=== PATIENT | female | born 1965 | race Two or more races ===

== ENCOUNTER 2017-06-24 10:28 | Emergency (ER) | payer BC ==
[2017-06-24 10:59] VITALS: BP 140/72; PULSE 100; RESP 18; TEMP 99.3
--- NOTE | 2017-06-24 11:46 | ED ---
General Adult HPI - General Chief complaint: Extremity Injury, Upper Stated complaint: RT SHOULDER PAIN Time Seen by Provider: 06/24/17 11:12 Source: patient, RN notes reviewed Mode of arrival: ambulatory Limitations: no limitations - History of Present Illness Initial comments: Patient is a 51-year-old female who presents emergency room today with chief complaint of increased pain to the right shoulder. She admits that she's been having some symptoms on and off for the last 4 months. She states that today when she was pulling some close she felt increased pop to the right shoulder. She states is worse with extension and abduction. Patient denies any other complaints or injuries. Patient denies any recent fever, chills, shortness of breath, chest pain, back pain, abdominal pain, nausea or vomiting, numbness or tingling, dysuria or hematuria, constipation or diarrhea, headaches or visual changes, or any other complaints. - Related Data Home Medications Medication Instructions Recorded Confirmed Acetaminophen Tab [Tylenol Tab] 650 mg PO Q6H PRN 06/24/17 06/24/17 Celecoxib [CeleBREX] 200 mg PO DAILY PRN 06/24/17 06/24/17 Previous Rx's Medication Instructions Recorded traMADol HCl [Ultram] 50 mg PO Q6H PRN #20 tab 06/24/17 Allergies Allergy/AdvReac Type Severity Reaction Status Date / Time No Known Allergies Allergy Verified 06/24/17 11:26 Review of Systems ROS Statement: Those systems with pertinent positive or pertinent negative responses have been documented in the HPI. ROS Other: All systems not noted in ROS Statement are negative. Past Medical History Additional Past Medical History / Comment(s): ovarian cyst History of Any Multi-Drug Resistant Organisms: None Reported Past Surgical History: Hernia Repair, Hysterectomy Past Psychological History: Anxiety, Depression Smoking Status: Never smoker Past Alcohol Use History: Occasional Past Drug Use History: None Reported General Exam - General Exam Comments Initial Comments: General: The patient is awake and alert, in no distress, and does not appear acutely ill. Neck: The neck is supple, there is no tenderness or JVD. Cardiovascular: There is a regular rate and rhythm. No murmur, rub or gallop is appreciated. Respiratory: Lungs are clear to auscultation, respirations are non-labored, breath sounds are equal. No wheezes, stridor, rales, or rhonchi. Musculoskeletal: Patient does have normal appearance the right shoulder no obvious deformity. She does show good range of motion but does have pain with abduction of the right shoulder. Locally tender over the anterior aspect her strength is 5/5 in all areas. Sensations intact pulses equal bilaterally 2+. Neurological: A&O x 3. CN II-XII intact, There are no obvious motor or sensory deficits. Coordination appears grossly intact. Speech is normal. Skin: Skin is warm and dry and no rashes or lesions are noted. Psychiatric: Normal mood and affect. Limitations: no limitations Course Vital Signs 06/24/17 10:55 Temperature 99.3 F Pulse Rate 100 Respiratory 18 Rate Blood Pressure 140/72 O2 Sat by Pulse 97 Oximetry Medical Decision Making - Medical Decision Making Patient's x-ray reviewed and negative for any acute fracture dislocation. Patient given arm sling here for comfort advised to do range of motion of exercises. Patient is advised follow-up with orthopedics over the next 2 days. Advised anti-inflammatories for pain. Disposition Clinical Impression: Right shoulder pain Disposition: HOME SELF-CARE Condition: Good Instructions: Shoulder Pain (ED) Additional Instructions: Please follow-up with orthopedics over the next 2 days. Please use arm sling when up and moving around. Please do range of motion exercises as discussed. Please return to emergency room symptoms increase worsen or for any other concerns. Prescriptions: traMADol HCl [Ultram] 50 mg PO Q6H PRN #20 tab PRN Reason: Pain Referrals: Mireille Palm MD [Primary Care Provider] - 1-2 days Jag Perez MD [Medical Doctor] - 1-2 days Time of Disposition: 12:17
--- NOTE | 2017-06-24 11:47 | XR ---
EXAMINATION TYPE: XR shoulder complete RT DATE OF EXAM: 06/24/2017 CLINICAL HISTORY: Right shoulder pain. TECHNIQUE: Three views of the right shoulder are obtained. COMPARISON: None. FINDINGS: There is no acute fracture/dislocation evident in the right shoulder. The acromioclavicul ar and glenohumeral joint spaces appear within normal limits. The visualized ribs are intact and unr emarkable. IMPRESSION: There is no acute fracture or dislocation in the right shoulder. Unremarkable study.
== END 2017-06-24 12:22 | disposition home or self-care (01) ==
LOC: EC 10:28
DX: M25.511 Pain in right shoulder (principal)
CPT/HCPCS: 99283

== ENCOUNTER → 2018-07-11 | Outpatient (CLI) | payer BC ==
[2018-07-11 12:29] VITALS: BP 137/73; PULSE 89; BMI 23.0
--- NOTE | 2018-07-11 13:21 | P.GSHP ---
History of Present Illness H&P Date: 07/11/18 The patient is a 53-year-old white female who states that approximately 2 months ago she noted a palpable abnormality in the right breast retroareolar area. She subsequently had a mammogram performed on [id number] [id number]. This was bilateral and revealed some vague nodularity in the inferior half of the left breast which became less defined and the true lateral. Additionally a subareolar mass corresponding to the palpable changes noted on the right. She subsequently underwent a bilateral ultrasound which revealed a 2.2 cm lobular solid lesion at 1:00 in the right breast and no lesion of concern in the left breast. Surgical consultation ultrasound core biopsy of the right breast lesion was recommended. The patient has no history of trauma to the breast. She has no history of infection of the breast. No history of any nipple discharge or skin changes. She states that the area in the right breast is tender if it is bumped and it has increased slightly in size. Family history: 1.mother: ovarian cancer 2. maternal grandmother: ovarian cancer Hormonal History: menarche: 17 : 2 first at 28, breast fed: yes menopause: hysterectomy at 30's, took left ovary done for cyst BCP: several years hormones: none Past Surgical History: 1. ovarian cyst 2. umbilical hernia 3. 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, sponge kidney Genitourinary: Reports hematuria, Denies dysuria - Menstruation Menstruation: Reports post hysterectomy - Musculoskeletal Comment: arthritis Musculoskeletal: Reports myalgias - Integumentary Integumentary: Denies pruritus, Denies rash - Neurological Comment: herniated disc, hands go numb at times Neurological: Denies numbness, Denies weakness - Psychiatric Psychiatric: Reports anxiety, Reports depression - Endocrine Endocrine: Reports fatigue, Denies weight change - Hematologic/Lymphatic Comment: uses aspirin product twice a week - Allergic/Immunologic Allergic/Immunologic: Reports seasonal allergies Past Medical History Additional Past Medical History / Comment(s): left ovarian cyst History of Any Multi-Drug Resistant Organisms: None Reported Past Surgical History: Hernia Repair, Hysterectomy Additional Past Surgical History / Comment(s): umbilical hernia Past Anesthesia/Blood Transfusion Reactions: Previous Problems w/ Anesthesia Additional Past Anesthesia/Blood Transfusion Reaction / Comment(s): No blood transfusion to date. Patient states that it "is a little harder for me to come out of it" Past Psychological History: Anxiety, Depression Smoking Status: Never smoker Past Alcohol Use History: Occasional Past Drug Use History: None Reported - Past Family History Father Family Medical History: Coronary Artery Disease (CAD), Diabetes Mellitus, Myocardial Infarction (DC) Additional Family Medical History / Comment(s): at age 72 Mother Additional Family Medical History / Comment(s): back surgery Sister(s) Family Medical History: CVA/TIA, Diabetes Mellitus Additional Family Medical History / Comment(s): PE following dental surgery that led to CVA Medications and Allergies Home Medications Medication Instructions Recorded Confirmed Type No Known Home Medications 06/25/18 07/11/18 History Allergies Allergy/AdvReac Type Severity Reaction Status Date / Time No Known Allergies Allergy Verified 06/25/18 11:18 Surgical - Exam Vital Signs Pulse BP Pulse Ox 89 137/73 100 07/11/18 12:24 07/11/18 12:24 07/11/18 12:24 - General well developed, well nourished, no distress - Eyes normal ocular movement - ENT no hearing loss, no congestion - Neck no masses, trachea midline - Respiratory normal respiratory effort, clear to auscultation - Cardiovascular Rhythm: regular Heart Sounds: normal: S1, S2 - Abdomen Abdomen: soft, non tender, no guarding, no rigid, no rebound - Neurologic no disoriented, no combative - Musculoskeletal normal gait, normal posture - Psychiatric oriented to time, oriented to person, oriented to place, speech is normal, memory intact Breast examination: Right breast: In the inner periareolar area there is approximately a 2 cm firm area of nodularity, multiple positional exam otherwise fibrocystic changes no dominant masses or nodules of concern Right axilla: No adenopathy of concern Left breast: No dominant masses or nodules of concern on multiple positional exam fibrocystic changes Left axilla: No adenopathy of concern Results Radiographic reports reviewed Assessment and Plan Assessment: Impression: 1. Abnormal mammogram right breast 2. Palpable abnormality right breast 3. Abnormal ultrasound right breast no abnormal findings on ultrasound left breast 4. Musculoskeletal pain 5. Degenerative disc disease 6. Status post hysterectomy 1 ovary Plan: 1. Ultrasound-guided core biopsy right breast lesion 2. Medical management of medical problems 3. Further recommendation following pathology results of right breast lesion 4. follow/up two weeks CC: Dr. Palm
== END | disposition home or self-care (01) ==
LOC: WWCWWP 11:38
PROVIDERS: ATTEND Surgery
DX: Z53.9 Procedure and treatment not carried out, unspecified reason (principal)

== ENCOUNTER → 2018-07-16 | Day surgery (SDC) | payer BC ==
[2018-07-16 11:37] VITALS: RESP 12; TEMP 98.1
[2018-07-16 13:16] VITALS: BP 117/77; PULSE 77
--- NOTE | 2018-07-16 15:47 | USB ---
EXAMINATION TYPE: US breast needle core RT DATE OF EXAM: 07/16/2018 HISTORY: Right breast mass. FINDINGS: Maximal barrier technique was utilized. The skin overlying a suitable path to the patient's mass was localized with ultrasound and the overlying skin prepped and draped. Ultrasound was utilized with sterile technique. Lidocaine was used for local anesthesia. A skin adelaida was made with a scalpel. An 18-gauge needle was advanced under direct ultrasound guidance and core specimen obtained of the mass. 2 additional passes were made and core specimens obtained. Marker clip was then deployed. Specimen submitted to Pathology. Following the procedure, hemostasis achieved and the patient is discharged in stable condition without complication. IMPRESSION:STATUS POST ULTRASOUND GUIDED CORE BIOPSY OF right breast MASS, PATHOLOGY IS PENDING. THIS PROCEDURE IS PERFORMED BY THE UNDERSIGNED. Pathology Results: Malignant BREAST, RIGHT, ULTRASOUND GUIDED CORE BIOPSY: Invasive moderately differentiated ductal carcinoma (Grade 2). See Surgical Pathology Cancer Case Summary. Recommendation Surgical consult of the right breast. SANDRA
== END | disposition home or self-care (01) ==
LOC: RADUSWWP 11:19
PROVIDERS: ATTEND Surgery
DX: C50.911 Malignant neoplasm of unspecified site of right female breast (principal)
CPT/HCPCS: 88305; 19083; A4648; J2001

== ENCOUNTER → 2018-07-26 | Outpatient (CLI) | payer BC ==
[2018-07-26 12:27] VITALS: BP 161/74; PULSE 89; RESP 16; TEMP 97.3; BMI 24.7
--- NOTE | 2018-07-26 12:47 | P.PN ---
Subjective Progress Note Date: 07/26/18 The patient is a 53-year-old white female who presents for results of an ultrasound-guided core biopsy of the right breast. Pathology revealed a grade 2 proximally 2.2 cm invasive ductal carcinoma which was ER/MA positive and HER- 2 negative. The patient on physical examination previously did not have any adenopathy in the right axilla. I've had a long discussion with the patient and her regarding treatment options. Unfortunately secondary to the location directly under the nipple areolar complex with almost direct extension and physical examination into the area of the nipple is not felt to be a good candidate for lumpectomy. We have discussed lumpectomy which would cause discrepancy in size of the breast with removal of the nipple areolar complex, we have also discussed possible skin sparing mastectomy with immediate reconstruction and the patient wishes this to be performed. If if the patient were to receive neoadjuvant chemotherapy and have some shrinkage of the tumor secondary to the proximity to the nipple areolar complex I still felt that this would not be a good option to try to save the nipple areolar complex. Additionally we have discussed sentinel node biopsy and possible axillary node dissection. The patient and her understand the risks and benefits of this and after discussion of all treatment options they wish to proceed with a mastectomy, immediate breast reconstruction, sentinel node biopsy and possible axillary node dissection. Objective - Vital Signs Vital signs: Vital Signs Temp 97.3 F L 07/26/18 12:24 Pulse 89 07/26/18 12:24 Resp 16 07/26/18 12:24 BP 161/74 07/26/18 12:24 Pulse Ox 99 07/26/18 12:24 Intake & Output 07/25/18 07/26/18 07/26/18 18:59 06:59 18:59 Weight 63.503 kg - Constitutional General appearance: Present: average body habitus, cooperative, mild distress - EENT Eyes: Present: EOMI - Neck Neck: Present: normal ROM - Respiratory Respiratory: bilateral: CTA - Cardiovascular Rhythm: regular Heart sounds: normal: S1, S2 - Gastrointestinal General gastrointestinal: Present: normal bowel sounds, soft - Integumentary Integumentary Comment(s): Mild ecchymosis in proximity to where core biopsy was done in the right breast Right breast examination performed prior to the biopsy revealed a palpable abnormality posterior to the right nipple areolar complex with extension very close under the nipple areolar complex Right axilla: No adenopathy of concern Left breast: On prior exam no dominant mass or nodule is of concern Left axilla: No adenopathy of concern - Psychiatric Psychiatric: Present: A&O x's 3, appropriate affect Assessment and Plan Assessment: Impression: 1. Right breast invasive ductal carcinoma grade 2 approximately 2.2 cm in size 2. Clinical [id number] ER positive, MA positive, HER-2/miky negative right breast cancer Plan: 1. Appointment with plastic surgery 2. Probable skin sparing mastectomy sentinel node biopsy possible axillary node dissection to be scheduled in the near future CC: Dr. Palm
== END | disposition home or self-care (01) ==
LOC: WWCWWP 11:47
PROVIDERS: ATTEND Surgery
DX: Z53.9 Procedure and treatment not carried out, unspecified reason (principal)

== ENCOUNTER → 2018-08-15 | Outpatient (CLI) | payer BC ==
[2018-08-15 12:41] VITALS: BP 134/64; PULSE 85; RESP 16; TEMP 97.3; BMI 23.0
--- NOTE | 2018-08-15 13:21 | P.GSHP ---
History of Present Illness H&P Date: 08/15/18 Chief Complaint: Right breast cancer/posterior to the nipple areolar complex The patient is a 53-year-old white female who was noted to have a palpable abnormality in her right breast in the retroareolar region. She subsequently had a mammogram performed on . This was bilateral and revealed some vague nodularity in the inferior half of the left breast which became less defined in the true lateral. Additionally a subareolar mass corresponding to the palpable changes were noted on the right. She subsequently underwent a bilateral ultrasound which revealed a 2.2 cm lobular solid lesion at 1:00 in the right breast no lesion of concern in the left breast. She underwent a core biopsy of the area in the right breast which was consistent with a grade to 2.2 cm invasive ductal carcinoma. This was ER/PA positive and HER-2 negative. The patient secondary to the location was recommended to undergo a skin sparing mastectomy with immediate reconstruction. After consideration she and her significant other decided that she would like to have bilateral mastectomy performed. She saw the plastic surgeon Dr. Jarquin in consultation. I discussed with the patient and her significant other that I do not expect there to be any cancer in the left breast and despite this she wishes a mastectomy to be performed. Genetic testing has been preformed and results are pending. Family history: 1. Mother: Ovarian cancer 2. Maternal grandmother: Ovarian cancer Hormonal history: Menarche: 17 : To first a 28 press-fit: Yes Menopause: Hysterectomy at 31 took her left ovary was done for assist control pills: several years Hormones: None Past surgical history: 1. Ovarian cyst removed 2. Umbilical hernia 3. hysterctomy Medical history: none Social history: Smoke: Negative Alcohol: [place] several times a week Drugs: Negative - Constitutional Comment: BMI 23 Constitutional: Denies chills, Denies fever - EENT Eyes: denies blurred vision, denies pain Ears: deny: decreased hearing, tinnitus Ears, nose, mouth and throat: Reports headache, Denies sore throat - Breasts Breasts: bilateral: as per HPI - Cardiovascular Cardiovascular: Denies chest pain, Denies shortness of breath - Respiratory Respiratory: Denies cough, Denies 7 - Gastrointestinal Comment: discussed colonoscopy patient refuses at this time Gastrointestinal: Reports constipation, Denies abdominal pain, Denies diarrhea, Denies nausea, Denies vomiting - Genitourinary (Female) Genitourinary: Denies dysuria, Denies hematuria - Menstruation Menstruation: Reports post hysterectomy - Musculoskeletal Comment: arthritis Musculoskeletal: Reports myalgias - Integumentary Integumentary: Denies pruritus, Denies rash - Neurological Neurological: Denies numbness, Denies weakness - Psychiatric Psychiatric: Reports anxiety, Reports depression - Endocrine Endocrine: Denies fatigue, Denies weight change - Hematologic/Lymphatic Comment: none at this time - Allergic/Immunologic Allergic/Immunologic: Reports seasonal allergies Past Medical History Past Medical History: Cancer, Pneumonia, Skin Disorder Additional Past Medical History / Comment(s): migraines, umbilical hernia, eczema, "sponge kidney", hx ovarian cancer, breast cancer History of Any Multi-Drug Resistant Organisms: None Reported Past Surgical History: Breast Surgery, Hernia Repair, Hysterectomy Additional Past Surgical History / Comment(s): umbilical hernia, left oophorectomy, rt breast biopsy Past Anesthesia/Blood Transfusion Reactions: Previous Problems w/ Anesthesia Additional Past Anesthesia/Blood Transfusion Reaction / Comment(s): No blood transfusion to date. Patient states that it "is a little harder for me to come out of it" Past Psychological History: Anxiety, Depression Smoking Status: Never smoker Past Alcohol Use History: Occasional Past Drug Use History: None Reported - Past Family History Father Family Medical History: Cancer Additional Family Medical History / Comment(s): . Mother History Unknown: Yes Family Medical History: Cancer Additional Family Medical History / Comment(s): back surgery Sister(s) Family Medical History: CVA/TIA, Diabetes Mellitus Additional Family Medical History / Comment(s): "blood clot in brain" Medications and Allergies Home Medications Medication Instructions Recorded Confirmed Type No Known Home Medications 06/25/18 08/15/18 History Allergies Allergy/AdvReac Type Severity Reaction Status Date / Time No Known Allergies Allergy Verified 08/15/18 12:20 Surgical - Exam Vital Signs Temp Pulse Resp BP Pulse Ox 97.3 F L 85 16 134/64 98 08/15/18 12:21 08/15/18 12:21 08/15/18 12:21 08/15/18 12:21 08/15/18 12:21 BMI 23 - General well developed, well nourished, moderate distress - Eyes normal ocular movement - ENT no hearing loss, no congestion - Neck no masses, trachea midline - Respiratory normal respiratory effort, clear to auscultation - Cardiovascular Rhythm: regular Heart Sounds: normal: S1, S2 - Abdomen Abdomen: soft, non tender, no guarding, no rigid, no rebound - Integumentary tattoo no rash, no abnormal pigmentation - Musculoskeletal normal gait, normal posture - Psychiatric oriented to time, oriented to person, oriented to place, speech is normal, memory intact Breast examination: Right breast colon mass noted directly beneath the nipple areolar complex on the right approximately 2.5 cm in size Right axilla: No adenopathy of concern Left breast: No dominant masses or nodules of concern a multi-positional exam Left axilla: No adenopathy of concern Results Patient's radiographs and pathology reports reviewed Assessment and Plan Assessment: Impression: 1. Right breast cancer 2. Arthritis 3. Status post hysterectomy Plan: 1. Bi-lateral mastectomy/skin sparing with sentinel node biopsy on the right and bilateral immediate reconstruction 2. Medical management of medical problems 3. Surgery will include bilateral skin sparing mastectomy, right breast injection for sentinel node biopsy, sentinel node biopsy on the right with possible right axillary node dissection Have had a long discussion with the patient and her significant other regarding treatment options for her malignancy. After discussion she has opted for a bilateral mastectomy. She knows that in the contralateral breast we do not expect to find a cancer. She wishes this to be done for symmetry purposes this was decided after her meeting with the plastic surgeon. We are waiting results of BRCA1 testing. The patient understands that if the risks were to be positive this could increase her risk of ovarian cancer however at this time she wishes to have the breast disease taken care of. Even if the BRCA1 gene is negative she wishes to have bilateral mastectomy. Dr. Palm was informed of the patient's decision. Cc: Dr. Palm
== END ==
LOC: WWCWWP 12:14
PROVIDERS: ATTEND Surgery
DX: Z53.9 Procedure and treatment not carried out, unspecified reason (principal)

== ENCOUNTER 2018-08-20 06:48 | Observation (INO) | payer BC ==
[2018-08-12 10:14] VITALS: BMI 23.0
[~2018-08-20 06:48] MED LIST: DEXAMETHASONE SOD PHOSPHATE 10 MG/ML 1 ML VIAL IV ONE; HEPARIN SODIUM,PORCINE 5,000 UNIT/ML 1 ML VIAL SQ ONE; LIDOCAINE 1% 20 ML VIAL (10MG/ML) FOR IV START INTRADERMA PRN; MIDAZOLAM 2 MG/2 ML VIAL IV PRN; Pre Op ABX Message 1 EACH MISC MISCELLANE ONE; SCOPOLAMINE 1.5MG/72HR PATCH TRANSDERM ONE
[2018-08-20] MEDS ORDERED: ALPRAZolam 0.5 MG TAB PO ONE (07:19)
[2018-08-20] MEDS: LACTATED RINGERS 1,000 ML IV SCH (07:29)
[2018-08-20] MEDS ORDERED: ceFAZolin 2,000 MG in DEXTROSE/WATER 1 50ML.BAG IVPB STA (08:55)
[2018-08-20] MEDS: ONDANSETRON 4 MG/2 ML VIAL IVP ONE ×2 (08:55→13:15)
[2018-08-20] MEDS ORDERED: ceFAZolin IN SWFI 2 GM/20 ML SYRINGE IVP STA (08:57)
--- NOTE | 2018-08-20 09:06 | NM ---
EXAMINATION TYPE: NM sentinel node injection DATE OF EXAM: 08/20/2018 COMPARISON: 06/21/2018 breast ultrasound HISTORY: Right breast cancer TECHNIQUE AND FINDINGS: The procedure of sentinel lymph node injection was explained to the patient. The benefits, alternatives, and risks were discussed. An informed consent was then obtained. Overlying skin is cleaned with sterile alcohol. Following this, 542 uCi [id number] Tilmanocept was inject ed in the upper outer aspect of the right nipple intradermally. The patient tolerated the procedure well without any immediate complication. The patient was kept in the radiology department for short stay after the procedure and then taken to surgery for surgical p rocedure what is presumed intraoperative gamma probe will be used for sentinel lymph node detection. IMPRESSION: Right breast radiotracer injection for sentinel node localization as above.
[2018-08-20] MEDS ORDERED: ePHEDrine SULFATE/0.9% NACL/PF 50 MG/5 ML SYRINGE IV ONE (09:11)
[2018-08-20] MEDS ORDERED: SUCCINYLCHOLINE CHLORIDE 100 MG/5 ML SYR IV ONE (09:11)
[2018-08-20] MEDS ORDERED: MIDAZOLAM 2 MG/2 ML VIAL ONE (09:11)
[2018-08-20] MEDS ORDERED: PROPOFOL 10 MG/ML 20 ML VIAL IV ONE (09:11)
[2018-08-20] MEDS ORDERED: fentaNYL (PF) 50 MCG/ML 2 ML AMP ONE (09:11)
[2018-08-20] MEDS ORDERED: LIDOCAINE 1% INJ 10MG/ML (20 ML MDV) ONE (09:11)
[2018-08-20] MEDS ORDERED: HEPARIN SODIUM,PORCINE 5,000 UNIT/ML 1 ML VIAL SQ ONE (09:28)
--- NOTE | 2018-08-20 09:32 | P.PN ---
Progress Note - Text Progress Note Date: 08/20/18 Patient opted for bilateral mastectomy. She understands risks and benefits and understands this is not necessary from a medical stand point and wishes to proceed. She is concerned about survellience and symmetry and wishes to proceed.
[2018-08-20] MEDS ORDERED: LACTATED RINGERS 1,000 ML IV ONE ×2 (10:08→13:55)
--- NOTE | 2018-08-20 11:30 | P.OP ---
Date of Procedure: 08/20/18 Preoperative Diagnosis: Right breast invasive ductal carcinoma Postoperative Diagnosis: Same Procedure(s) Performed: Right sentinel node biopsy, right skin sparing mastectomy, left skin sparing mastectomy Anesthesia: JONNATHAN Surgeon: Amarilys Atkinson Estimated Blood Loss (ml): 20 IV fluids (ml): 700 Pathology: other ([place] node, axillary lymph nodes, bilateral breast) Condition: stable Disposition: PACU Indications for Procedure: Right breast invasive ductal carcinoma Operative Findings: Dense breast tissue Description of Procedure: Indications: The patient is a 53-year-old white female with a invasive ductal carcinoma located in the nipple area over area on the right breast. The patient had opted for a mastectomy on this side however after consideration she felt that she wanted bilateral mastectomy. She met with plastic surgery and this was her decision. She understands that she does not have a cancer or knowledge in the left breast and this is not necessary from a medical standpoint. However for symmetry purposes and surveillance post procedure she is very adamant about wanting a bilateral mastectomy. The patient was taken to the operating room and following induction of anesthesia the right and left breasts and right axilla were prepped and draped in a sterile fashion. Using the neoprobe the area of greatest radioactivity was identified in the right axilla. An incision was made over this area and carried into the axillary tissue. A radioactive lymph node was identified. This was removed. The 10 second count on the lymph node was over 12,000. The patient's was noted to have a second radioactive lymph node in the 10 second count on this was 1200. The background count was 34 at 10 seconds. The sentinel node #1 was sent for frozen section evaluation. This was negative for cancer on frozen section evaluation. After assured that hemostasis was attained the deep tissues were closed using 3-0 Vicryl suture. The skin was closed using a 4-0 Monocryl. The right breast was approached. A circumareolar incision was performed. This was carried through the skin and subcutaneous tissue. Circumferential skin flaps were developed down to the muscle of the chest wall. The breast was taken from medial to lateral being careful to maintain hemostasis using the electrocautery device as well as the Harmonic scalpel. After the breast was removed the wound was well irrigated. After we assured that hemostasis was attained the wound was packed and instruments and gloves were changed. The left breast was then approached. A matching circumareolar incision to the right side was performed. This was carried through the skin and subcutaneous tissue. Circumferential flaps were developed. Dissection was carried down to the pectoralis major muscle. The breast was removed from medial to lateral being careful to maintain hemostasis using the electrocautery device as well as the Harmonic scalpel. After this the breast was removed. Both breasts were oriented and superior and lateral margins were marked using suture. After assured that hemostasis was attained in the left side the wound was packed. At this point Dr. Jarquin plastic surgeon came in to complete the procedure. All instrument and sponge counts were correct at the end of the bilateral mastectomy and sentinel node biopsy. The patient tolerated the procedure in stable condition to this point.
[2018-08-20] MEDS ORDERED: HYDROmorphone 1 MG/ML 1 ML SYRINGE IV PRN (11:33)
[2018-08-20] MEDS ORDERED: NALOXONE 0.4 MG/ML 1 ML VIAL IV PRN (11:33)
--- NOTE | 2018-08-20 11:33 | P.NAPBC ---
[facility] Queries - [facility] Queries Was patient's case review presented at [facility] tumor board? If no, comment.: Yes Was patient's pathology reviewed at [facility]? If no, comment.: Yes Was breast conservation surgery offered? If no, comment.: No (The cancer was directly below/involving the aerola and nipple complex. ) Was sentinel node biopsy offered? If no, comment.: Yes Was diagnosis confirmed by percutaneous core biopsy? If no, comment.: Yes If mastectomy patient, was a preop referral to a reconstructive surgeon offered? : Yes [facility] Comments: The lesion in the right breast was directly below the nipple areolar complex. It was not felt that she would get a good cosmetic result from a lumpectomy. This was discussed with the patient, and for cosmetic reasons she opted for a skin sparing mastectomy with immediate reconstruction. After consultation with plastic surgery she decided that she wanted bilateral mastectomies performed. We discussed that this was not medically necessary however 4 symmetry purposes as well as postoperative surveillance she understood risks and benefits and wished to have bilateral mastectomy.
--- NOTE | 2018-08-20 13:08 | P.ONQ ---
Anesthesiology Proc Note - PNB - Peripheral Nerve Block Performed Bilateral Other (see comment) Single Time Out Performed: Yes (pec1 and pec2) Procedure Start Time: 08:36 Procedure Stop Time: 08:42 Indication: Acute Post-Operative Pain, Requested by physician Sedation Type: Sedate with meaningful contact maintained Preparation: Sterile Prep Needle Size: 50mm (2") Needle Gauge: 21 Technique: Ultrasound Injectate: 0.5% Ropivacaine (see comment for volume) (ropi .5% 10 ccfor each block) Blood Aspirated: No Pain Paresthesia on Injection Noted: No Resistance on Injection: Normal Events: Uneventful and Well Tolerated
[2018-08-20] MEDS: HYDROmorphone 1 MG/ML 1 ML SYRINGE IVP PRN ×4 (13:23→13:51)
--- NOTE | 2018-08-20 15:07 | OP ---
OPERATIVE REPORT DATE OF SURGERY: 08/20/2018. SURGEON: Wilfred Hart MD PREOPERATIVE DIAGNOSES: 1. Acquired loss right breast. 2. Acquired loss left breast. 3. Breast cancer. POSTOPERATIVE DIAGNOSES: 1. Acquired loss right breast. 2. Acquired loss left breast. 3. Breast cancer. OPERATIVE PROCEDURES: 1. Immediate reconstruction right breast following mastectomy with insertion of tissue building construction teacher subsequent outpatient expansion. 2. Immediate reconstruction left breast following mastectomy with insertion of tissue building construction teacher subsequent outpatient expansion. 3. Implantation of reconstructive graft for right and left breast reconstruction, 300 cm2. OPERATIVE INDICATIONS: The patient is a 53-year-old female with breast cancer of the right breast. She is to undergo bilateral mastectomies and is referred to my care for breast reconstruction. The patient has elected to proceed with tissue building construction teacher style reconstruction. Understands the staged nature of breast reconstructive surgery including potential risks and complications related to today's surgery such as seroma, hematoma, wound healing problems, postoperative infection, among others. She has requested I perform today's surgery. OPERATIVE PROCEDURE SUMMARY: The patient is seen in the preoperative area, markings made, procedure reviewed. All questions answered. She was transported to the operating room where she was placed in supine position. General endotracheal anesthesia was established Dr. Atkinson and her surgical team then proceeded with the right mastectomy, right sentinel lymph node excision, and then a left mastectomy. The patient sentinel lymph node was negative for cancer. Once the mastectomy procedures were complete, I entered the procedure. All sponge and needle counts from the prior procedure were correct. Both wounds were open with no active bleeding. Surgery was initiated on the left side. The pectorals major muscle was identified where it joined the chest wall laterally, loose areolar connective tissue divided with cautery allowing entry into the potential plane between the pectorals major and minor muscle with bluntly developed, medial attachment fibers of the pectorals muscle to ribs released with cautery. All inferior attachment of the pectorals major muscle was released with cautery to obtain sufficient muscle coverage required recruitment of additional muscle groups inferomedially, rectus abdominis muscle and fascia inferolaterally, external abdominal oblique muscle and fascia and laterally, serratus anterior muscle and fascia were all elevated through this approach using cauterization to maintain hemostasis with cautery as needed. Once sufficient size submuscular reconstructive pocket created, the area is packed open with saline moistened laparotomy sponges. Attention was turned towards the right side. The pectorals major muscle was identified and then the lateral aspect and muscle were joined with the chest wall. Loose areolar connective tissue divided with cautery here allowing entry into the potential plane between the pectorals major and minor muscles, which was bluntly developed. Medial attachment fibers of the pectorals major muscle was released with cautery and all inferior attachments, again sufficient muscle coverage required recruitment of additional muscle groups, inferior medial rectus abdominis muscle and fascia, inferior laterally external abdominal oblique muscle and fascia and laterally serratus anterior muscle and fascia were all elevated. The patient's muscle on the right side was attenuated significant amount and there were rents within the muscle tissue. The right left side were converted to inferior sling type reconstruction with a low transverse incision across the muscle flap that was elevated along the area of the thoracoabdominal wall fascial plane. SurgiMend reconstructive graft was then opened on the field, two pieces each measuring 10 x 15 cm, fenestrated and thin. They were soaked in room temperature saline. Once ready, they were placed into the right and left reconstructive cavities and secured to the inferior muscular cuff created using interrupted short running 3-0 Vicryl sutures. The cavities were sized. Good symmetry was present. Gloves changed and tissue building construction teacher opened on the field. The left side was opened first. Both expanders were model number [id number] measuring 375 mL. The left-sided serial number was [id number] and the right-sided serial number was [id number]. The left-sided device was placed first. After opening the device, it is irrigated with saline. All air extracted and 50 mL 0.9 normal saline instilled and inserted in the reconstructive cavity and then the SurgiMend advanced in cephalad fashion and the patient's multi component muscle flap advanced inferiorly and the two were inset to each other using interrupted short running 3-0 Vicryl. Complete coverage obtained of the building construction teacher. The right-sided building construction teacher was now placed in the reconstructive pocket created and again the SurgiMend tissue advanced in cephalad fashion. The muscle flap advanced inferiorly and the two were inset to each other using interrupted and short running 3-0 Vicryl sutures providing complete coverage to the building construction teacher. Both expanders were symmetrically placed. Additional 50 mL 0.9 normal saline instilled into each building construction teacher making the final volume 100 mL. Irrigations performed. Hemostasis excellent. Two 19 round Gallo channel drains were opened on the field, 1 drain placed in each reconstructive cavity and brought through separate stab incisions in the anterior lateral chest wall on each side. Each drain is kept at full length and sutured in place using 2-0 Prolene. The circumareolar incisions were now closed on each side using a deep dermal 2-0 Prolene pursestring suture followed by the use of mildred to achieve close approximation of the epidermal edges on each side. The drains were connected to close bulb suction and patent. The surgical machuca are now cleansed with saline, dried, postoperative bandages placed, placing half-inch Steri- Strips over the patient's axillary incision followed by Kerlix squares over all incisions, drain, sponges and then all secured with 3M Medipore tape. The patient is then awakened from anesthetic, extubated, and transferred to the recovery room in good condition. Stable vital signs. There were no complications. ESTIMATED BLOOD LOSS: 50 mL. MMODL / IJN: [id number] /
[2018-08-20] MEDS: HEPARIN SODIUM,PORCINE 5,000 UNIT/ML 1 ML VIAL SQ SCH ×2 (19:50→23:51)
[2018-08-20] MEDS: HYDROcodone/APAP 5-325MG 1 EACH TAB PO PRN (19:59)
[2018-08-20] MEDS: ceFAZolin 1,000 MG in DEXTROSE/WATER 1 50ML.BAG IVPB SCH (20:00)
[2018-08-20] MEDS: DEXTROSE 5%-0.45% NACL 1,000 ML IV SCH (20:00)
[2018-08-20] MEDS: FAMOTIDINE 20 MG TAB PO SCH (20:01)
[2018-08-20] MEDS: ONDANSETRON 4 MG/2 ML VIAL IVP PRN (20:50)
[2018-08-21] MEDS: ceFAZolin 1,000 MG in DEXTROSE/WATER 1 50ML.BAG IVPB SCH (01:59)
[2018-08-21] MEDS: ONDANSETRON 4 MG/2 ML VIAL IVP PRN (02:34)
[2018-08-21] MEDS: HYDROcodone/APAP 5-325MG 1 EACH TAB PO PRN ×2 (05:13→11:42)
[2018-08-21] MEDS: DEXTROSE 5%-0.45% NACL 1,000 ML IV SCH ×2 (05:14→11:44)
[2018-08-21 08:32] VITALS: BP 126/72; PULSE 89; RESP 20; TEMP 97.8
[2018-08-21] MEDS: FAMOTIDINE 20 MG TAB PO SCH (08:41)
[2018-08-21] MEDS: HEPARIN SODIUM,PORCINE 5,000 UNIT/ML 1 ML VIAL SQ SCH (08:41)
[2018-08-21] MEDS: LACTATED RINGERS 1,000 ML IV SCH (09:10)
[2018-08-21 09:30] LABS: Basophils % (A) 0 %; Eosinophils % (A) 0 %; HCT 37.4 % (34.0-46.0); HGB 12.3 gm/dL (11.4-16.0); Lymphocytes # (A) 1.8 k/uL (1.0-4.8); Lymphocytes % (A) 19 %; MCHC 32.8 g/dL (31.0-37.0); MCV 94.6 fL (80.0-100.0); Mean Platelet Volume 6.8; Monocytes # (A) 0.4 k/uL (0-1.0); Monocytes % (A) 4 %; Neutrophils # (A) 6.9 k/uL (1.3-7.7); Neutrophils % (A) 75 %; Platelet Count 255 k/uL (150-450); RBC 3.96 m/uL (3.80-5.40); WBC 9.2 k/uL (3.8-10.6)
--- NOTE | 2018-08-21 10:39 | P.PN ---
Subjective Progress Note Date: 08/21/18 Principal diagnosis: Status post bilateral mastectomy with reconstruction postop day #1 The patient is doing well at this time. She initially had some nausea yesterday but this is improved. She tolerated clear liquids for breakfast this morning. She otherwise has no complaints. The HAYDEE drainage is serosanguineous. She had a CBC performed today white count 9.2, hemoglobin 12.3. Objective - Vital Signs Vital signs: Vital Signs Temp 97.8 F 08/21/18 07:00 Pulse 89 08/21/18 07:00 Resp 20 08/21/18 07:00 BP 126/72 08/21/18 07:00 Pulse Ox 98 08/21/18 07:00 Intake & Output 08/20/18 08/21/18 08/21/18 18:59 06:59 18:59 Intake Total 1999 Output Total 205 1140 45 Balance 1795 -1140 -45 Intake: IV 1900 Oral 100 Output: Drainage 55 40 45 drain a 40 30 45 drain b 15 10 Urine 100 1100 Estimated Blood Loss 50 Other: # Voids 1 - Constitutional General appearance: Present: average body habitus - EENT Eyes: Present: EOMI ENT: Present: hearing grossly normal - Neck Neck: Present: normal ROM - Respiratory Details: Decreased breath sounds at bases bilaterally but otherwise clear - Cardiovascular Rhythm: regular Heart sounds: normal: S1, S2 - Integumentary Integumentary Comment(s): Incisions clean and dry No evidence of infection HAYDEE drains serosanguineous bilaterally Drain a right side, 45 mL serosanguineous Drain be 25 mL serosanguineous - Psychiatric Psychiatric: Present: A&O x's 3, appropriate affect, intact judgment & insight - Labs CBC & Chem 7: 08/21/18 09:04 Assessment and Plan Assessment: Impression: 1. Patient status post bilateral mastectomy with immediate implant placement 2. He should initial nausea has resolved Plan: 1. Be sure patient can tolerate lunch 2. Probable discharge home later today to follow with Dr. Weller next week
--- NOTE | 2018-08-21 10:42 | P.DS ---
Providers Date of admission: 08/20/18 22:45 Attending physician: Amarilys Atkinson Primary care physician: Stated None Hospital Course: The patient is a 53-year-old white female who was postop day #1 status post bilateral mastectomy with right sentinel node biopsy and immediate reconstruction. Initially she had some postoperative nausea which has improved. The patient is doing well and is ready for discharge as long she tolerates her lunch. Plan - Discharge Summary Discharge Rx Participant: No New Discharge Prescriptions: No Action No Known Home Medications Discharge Medication List No Known Home Medications 06/25/18 [History] Follow up Appointment(s)/Referral(s): Amarilys Atkinson MD [STAFF PHYSICIAN] - 1 Week Activity/Diet/Wound Care/Special Instructions: 1. Patient may shower after 48 hours 2. Teach patient and family drain care 3. Do not drive until seen by Dr. Weller Discharge Disposition: HOME SELF-CARE
== END 2018-08-21 14:26 | disposition home or self-care (01) ==
LOC: OR 06:48 → 6PED 12:50 → OR 22:31 → INTOOBSV 22:45 → 6PED 22:45
PROVIDERS: ADMIT Surgery; ATTEND Surgery
DX: C50.911 Malignant neoplasm of unspecified site of right female breast (principal); R11.0 Nausea; G43.909 Migraine, unspecified, not intractable, without status migrainosus; Z90.13 Acquired absence of bilateral breasts and nipples; Z85.43 Personal history of malignant neoplasm of ovary
CPT/HCPCS: 19303; 38525; 19357; 64450; 85025; 88342; 88331; 88307; 88341; 38792; G0378 ×2; C1763; A9520; J2250; J1644 ×2; J1100; J2405 ×2; J2001; J3010; J1170; J0690 ×3; J0330; J2704

== ENCOUNTER → 2018-08-29 | Outpatient (CLI) | payer BC ==
[2018-08-29 14:59] VITALS: BP 132/84; PULSE 80; RESP 18; TEMP 97.8; BMI 22.8
--- NOTE | 2018-08-29 15:50 | P.PN ---
Progress Note - Text Progress Note Date: 08/29/18 The patient is postop last week bilateral mastectomies with immediate subpectoral implant reconstruction. This time she is doing well. She does complain of some persistent discomfort at the reconstruction sites. As no complaints of any fevers or evidence of infection. Harshal-Guerra drains are in place with serosanguineous drainage. Both drains are putting out approximately 25-30 mL of serosanguineous fluid per day. Pathology was consistent with a T2 N0 M0 invasive ductal carcinoma, this is a grade 1 tumor Physical exam: Bilateral breast periareolar incisions clean and dry Lungs: Clear Heart: Regular rate and rhythm Impression: 1. Patient doing well postoperative bilateral skin sparing mastectomies with immediate subpectoral implant reconstruction 2. No evidence of infection Plan: 1. Follow up with Dr. Jarquin 2. Follow-up with medical oncology 3. Follow-up here in 3 months if drains are removed, and in 1 week if drains are not removed CC: Dr. Rodriguez
== END | disposition home or self-care (01) ==
LOC: WWCWWP 14:43
PROVIDERS: ATTEND Surgery
DX: Z53.9 Procedure and treatment not carried out, unspecified reason (principal)

== ENCOUNTER → 2018-11-28 | Outpatient (CLI) | payer BC ==
[2018-11-28 13:07] VITALS: BP 109/71; PULSE 81; RESP 18; TEMP 97.7
--- NOTE | 2018-11-28 13:46 | P.PN ---
Subjective Progress Note Date: 11/28/18 Patient is a 53-year-old white female status post bilateral mastectomy and subpectoral implants on [id number]. The patient is being seen by Dr. Jarquin and is still getting fills. She has no complaints at this time related to the surgery. The patient is presently receiving chemotherapy. The patient is got one more course of chemotherapy before she is done. The patient is taking Neupogen after her chemotherapy. She did not tolerate the Neulasta. The patient complains only of fatigue related to the chemotherapy. Today she is tired and she worked last night and has not slept yet. Objective - Vital Signs Vital signs: Vital Signs Temp 97.7 F 11/28/18 13:02 Pulse 81 11/28/18 13:02 Resp 18 11/28/18 13:02 BP 109/71 11/28/18 13:02 Pulse Ox 97 11/28/18 13:02 Intake & Output 11/27/18 11/28/18 11/28/18 18:59 06:59 18:59 Weight 63.957 kg - Exam BMI 25 - Constitutional General appearance: Present: average body habitus - EENT Eyes: Present: EOMI ENT: Present: hearing grossly normal - Neck Neck: Present: normal ROM - Respiratory Respiratory: bilateral: CTA - Cardiovascular Rhythm: regular Heart sounds: normal: S1, S2 - Gastrointestinal General gastrointestinal: Present: soft - Musculoskeletal Musculoskeletal: Present: gait normal - Psychiatric Psychiatric: Present: A&O x's 3, appropriate affect, intact judgment & insight - Additional findings Additional findings: Breast exam: Right breast: Multi-positional exam machine stonecutter in place it is somewhat tight with mild erythema at the inferior aspect patient just had a fill done approximately a week ago. Right axilla: Mild shotty adenopathy non-worrisome the axillary incision from sentinel node biopsies clean and dry Left breast: Multi-positional exam machine stonecutter in place this is softer than the contralateral side and slightly larger Left axilla: No adenopathy of concern Assessment and Plan Assessment: Impression: 1. Patient is status post bilateral mastectomy with subpectoral implants for a T2N0M0 Grade3,ER+,MO+, Her2/Sylwia- breast cancer surgery 08/20/18. 2. Patient is in the process of having the implants expanded per Dr. Jarquin 3. Patient is finishing chemotherapy Plan: 1. Continue present therapy 2. Patient to follow in 3 months time 3. No evidence of any recurrent cancer at this time CC: Dr. Palm
== END ==
LOC: WWCWWP 12:33
PROVIDERS: ATTEND Surgery
DX: Z53.9 Procedure and treatment not carried out, unspecified reason (principal)

== ENCOUNTER → 2019-02-06 | Outpatient (CLI) | payer BC ==
--- NOTE | 2019-02-06 13:21 | BD ---
EXAMINATION TYPE: Axial Bone Density DATE OF EXAM: 02/06/2019 COMPARISON: NONE CLINICAL HISTORY: Osteoporosis per order. Height: 63 Weight: 138.3 FRAX RISK QUESTIONS: Alcohol (3 or more units per day): no Family History (Parent hip fracture): no Glucocorticoids (More than 3mos): no (Ex: prednisone, prednisolone, methylprednisolone, dexamethasone, and hydrocortisone). History of Fracture in Adulthood: no Secondary Osteoporosis: 1. Type 1 Diabetes: no 2. Hyperthyroidism: no 3. Menopause before 45: yes 4. Malnutrition: no 5. Chronic liver disease: no Rheumatoid Arthritis: no Current Tobacco Use: no RISK FACTORS HISTORY OF: Family History of Osteoporosis: yes Active: yes Diet low in dairy products/other sources of calcium: yes Postmenopausal woman: 21 years ago Lost more than 2 inches in height since high school: no MEDICATIONS: Arimidex, seizure meds Additional History: had breast cancer 2018- chemo treatments EXAM MEASUREMENTS: Bone mineral densitometry was performed using the [employer] System. Bone mineral density as measured about the Lumbar spine is: ----- L1-L4(G/cm2): 0.865 T Score Values are as follows: ----- L2: -2.5 ----- L3: -2.5 ----- L4: -3.2 ----- L1-L4: -2.6 Bone mineral density : baseline Bone mineral density about the R hip (g/cm2): 0.914 Bone mineral density about the L hip (g/cm2): 0.808 T Score values are as follows: -----R Neck: -0.9 -----L Neck: -1.7 -----R Total: -0.7 -----L Total: -1.0 Bone mineral density : baseline IMPRESSION: Osteoporosis (T Score less than -2.5) overall in the low back. There is increased fracture risk and therapy is usually indicated based on age. Re-Screen 1-2 years. NOTE: T-SCORE=SD OF THE YOUNG ADULT MEAN.
== END | disposition home or self-care (01) ==
LOC: RADBDWWP 09:23
PROVIDERS: ATTEND Internal Medicine Hematology & Oncology
DX: M81.0 Age-related osteoporosis without current pathological fracture (principal)
CPT/HCPCS: 77080

== ENCOUNTER 2019-02-18 07:24 | Day surgery (SDC) | payer BC ==
[2019-02-14 09:09] VITALS: BMI 23.9
[~2019-02-18 07:24] MED LIST changes: -HEPARIN SODIUM,PORCINE 5,000 UNIT/ML 1 ML VIAL SQ ONE; +HYDROmorphone 0.5 MG/0.5 ML SYRINGE IVP PRN; +LACTATED RINGERS 1,000 ML IV SCH; -MIDAZOLAM 2 MG/2 ML VIAL IV PRN; +ONDANSETRON 4 MG/2 ML VIAL IVP ONE; -Pre Op ABX Message 1 EACH MISC MISCELLANE ONE; +ceFAZolin IN SWFI 2 GM/20 ML SYRINGE IVP ONE
[2019-02-18] MEDS ORDERED: GLYCOPYRROLATE 0.2 MG/ML 2 ML VIAL ONE (08:43)
[2019-02-18] MEDS ORDERED: fentaNYL (PF) 50 MCG/ML 2 ML AMP ONE (08:43)
[2019-02-18] MEDS ORDERED: LIDOCAINE 1% INJ 10MG/ML (20 ML MDV) ONE (08:43)
[2019-02-18] MEDS ORDERED: PROPOFOL 10 MG/ML 20 ML VIAL IV ONE (08:43)
[2019-02-18] MEDS ORDERED: PHENYLEPHRINE-0.9% NACL SYG 1 MG/10 ML SYRINGE ONE (08:43)
[2019-02-18] MEDS ORDERED: ROCURONIUM BROMIDE 10 MG/ML 10 ML VIAL IV ONE (08:43)
[2019-02-18] MEDS ORDERED: NEOSTIGMINE 1 MG/ML 10 ML VIAL ONE (08:43)
[2019-02-18] MEDS ORDERED: MIDAZOLAM 2 MG/2 ML VIAL ONE (08:43)
[2019-02-18] MEDS ORDERED: LACTATED RINGERS 1,000 ML IV ONE (10:49)
[2019-02-18 11:21] VITALS: TEMP 97.3
[2019-02-18 11:38] VITALS: RESP 18
--- NOTE | 2019-02-18 12:22 | OP ---
OPERATIVE REPORT DATE OF SURGERY: 02/18/2019. SURGEON: Wilfred Hart MD PREOPERATIVE DIAGNOSES: 1. Acquired loss right and left breast. 2. Personal history of breast cancer. 3. Acquired deformity, right and left reconstructed breast. 4. Acquired loss right and left breast inframammary folds. POSTOPERATIVE DIAGNOSES: 1. Acquired loss right and left breast. 2. Personal history of breast cancer. 3. Acquired deformity of right and left reconstructed breast. 4. Acquired loss right and left breast inframammary folds. OPERATIVE PROCEDURES: 1. Replace right breast tissue learning and development officer with silicone breast implant for breast reconstruction. 2. Revision right reconstructed breast. 3. Replace left breast tissue learning and development officer with silicone breast implant for left breast reconstruction. 4. Revision left reconstructed breast. 5. Reconstruction of right and left inframammary folds via local advancement flaps, 41.3 cm2. 6. Implantation of reconstructive graft for right and left breast reconstruction. OPERATIVE INDICATIONS: Patient is a 53-year-old female who has undergone bilateral mastectomy for treatment of breast cancer with immediate reconstruction via tissue learning and development officer technique. It has completed subsequent outpatient expansion, is returning today for the 2nd stage of breast reconstruction process which will include replacement of her tissue learning and development officer, silicone breast implants, revision of the right left reconstructed breast due to contour irregularities deformities secondary to mastectomy reconstructive and expansion processes, as well as reconstruction of effaced on the right and left inframammary folds also lost due to the prior mastectomy procedure and expansion process. The patient understands her potential risks and complications related to the surgery including the outcomes cannot be guaranteed. She has requested I proceed with today's surgery. OPERATIVE PROCEDURE SUMMARY: The patient is seen in the preoperative area, markings made, procedure reviewed. All questions answered. She is transported to the operating room, where general endotracheal anesthesia was established. She was then prepped and draped in usual fashion. The markings for surgery now made on the right side. An elliptical incision was drawn around the scar as there was a small ulceration within the central portion of the mastectomy scar area on the right side. This incision was drawn in a transverse fashion as there is no open ulceration. Starting on the right side, elliptical incision was made excising the scar and a small area of ulcer with a 10 blade scalpel and sending this tissue to pathology for permanent evaluation. Skin subcutaneous tissue flaps were then elevated off the underlying muscle flap in graft layers by dissection first with 10 blade scalpel, then with cauterization. Extensive dissection was required to release contour irregularities, scarring that had formed affecting the contours. Once this was completed, hemostasis maintained with cautery. A transverse incision was made through the muscle flap and graft layer exposing the learning and development officer. The fluid was extracted from the learning and development officer through the port and then the learning and development officer removed intact. The cavity appeared normal with some serous fluid. No granulation tissue, no exudates. A complete capsulotomy incision was made where the capsule joined the chest wall with cauterization and then multiple cruciate incisions made through the capsule to release the tightness of the structure. The dissection was not performed for creation of a right inframammary fold. The fold required measure 13.5 cm transversely and 1.5 cm vertically. Dissection was performed through the inferior capsulotomy portion of the incision, elevating skin and subcutaneous tissue off the muscle fascia layers. Once sufficient flap was elevated, irrigations is performed, hemostasis was excellent. The right inframammary fold was advanced in a cephalad fashion, secured to the thickened expansion tissue and rib periosteal tissue along the anterior right chest wall, several discrete locations with 2-0 Vicryl suture. The cavity was irrigated and a 350 mL temporary breast implant sizer inserted in the cavity. Attention is turned toward the left side. The incisions made in transverse fashion as diagrammed with 10 blade scalpel dividing skin full-thickness fashion. Skin subcutaneous tissue flaps were elevated off the underlying muscle flap graft layers. Extensive dissection was required to release contour irregularities and heavy scarring that affected the contour and shape of the left side. Once this was completed, irrigation was performed. Hemostasis was maintained with cauterization. A transverse incision was then made through the muscle flap graft layer exposing the learning and development officer. Again fluid was extracted from the learning and development officer and then the learning and development officer removed. The expansion cavity appeared normal. Some serous fluid, no granulation tissue. no exudates. After irrigating, a complete capsulotomy incision was made where the capsule joined the chest wall with cauterization. The multiple cruciate incisions were made through the capsular structure to release the tightness with cauterization. Hemostasis maintained with cautery. The dissection for the left inframammary fold was now initiated through the inferior capsulotomy portion of the incision, elevating the skin and subcutaneous tissue flap. The flap for the left side measured 14 cm transversely by 1.5 cm vertically. Once elevated, the flap was advanced in a cephalad fashion securing to anterior chest wall, periosteum rib structure and hypertrophic expansion capsule along the chest wall with interrupted 2-0 Vicryl sutures, creating a discrete inframammary fold in a symmetrical location to the right side. Irrigation was performed. Hemostasis was excellent. Different temporary implant sizers were opened on the field and evaluated with the patient in a seated up position. Ultimately, a 350 mL size appeared best. She has returned to supine position. Temporary implant sizers removed. Irrigation performed. Each site was inspected for hemostasis which was excellent. Gloves were now changed starting on the right side and the breast implant was opened. Both implants were from the [employer], high-profile, reference #[id number]. The right-sided implant serial # was [id number]. The left-sided serial # was [id number]. The right side was opened first after changing gloves, irrigated with saline, inserted in the reconstructive cavity. It was clear the muscle flap graft layer from prior surgery could not completely cover the implant without distortion. Therefore SurgiMend reconstructive graft measuring 10 x 15 cm was opened on the field. We vitalized according to package instructions what why the graft was soaking room temperature saline. The gloves were changed. The left-sided breast implant open field inserted in the reconstructive cavity. A similar situation was present with advancing the muscle flap graft flare from prior surgery causing distortion of the implant. Careful measurements were paged to each side. The 1 piece of SurgiMend was sufficient was divided into 2 equal portions of her cleft across its midline. This SurgiMend was now placed in each reconstructive cavity directly over the implant, but deep to the muscle flap Prograf layer and the muscle flap and SurgiMend layers were now inset to each other on the right left side using interrupted 3-0 Vicryl sutures providing complete coverage irrigations performed. Hemostasis was excellent. The skin incision. Each side was now approximated to close the deep dermis using inverted interrupted 4-0 Monocryl. Then completing superficial dermal epidermal closure was a running 5-0 Prolene sutures. Surgical field was cleansed in the site of saline dried postoperative bandages placed using sterile 1 inch paper tape, Kerlix squares in position, size 3 mammary support and the patient was then awakened from her anesthetic, extubated, and transferred to the recovery room in good condition stable vital signs. The estimated blood loss is 50 mL. There were no complications. KONRADL / IJN: [id number] /
[2019-02-18] MEDS ORDERED: HYDROcodone/APAP 7.5-325MG 1 EACH TAB PO ONE (12:38)
[2019-02-18 12:44] VITALS: BP 118/73; PULSE 82
== END 2019-02-18 13:06 | disposition home or self-care (01) ==
LOC: OR 07:24
PROVIDERS: ATTEND Plastic Surgery
DX: N65.0 Deformity of reconstructed breast (principal); L98.499 Non-pressure chronic ulcer of skin of other sites with unspecified severity; L90.5 Scar conditions and fibrosis of skin; L30.9 Dermatitis, unspecified; Z85.3 Personal history of malignant neoplasm of breast; Z90.13 Acquired absence of bilateral breasts and nipples; Z79.899 Other long term (current) drug therapy
CPT/HCPCS: 88305; 19342; 19366; C1789; C1763; J2250; J1100; J2710; J2405; J2001; J3010; J2370; J2704; J0690; 88302

== ENCOUNTER 2019-05-27 11:08 | Day surgery (SDC) | payer BC ==
[2019-05-26 13:55] VITALS: BMI 22.1
[~2019-05-27 11:08] MED LIST changes: -LIDOCAINE 1% 20 ML VIAL (10MG/ML) FOR IV START INTRADERMA PRN; +MIDAZOLAM 2 MG/2 ML VIAL IV PRN; -ceFAZolin IN SWFI 2 GM/20 ML SYRINGE IVP ONE
[2019-05-27] MEDS ORDERED: LIDOCAINE 1% 20 ML VIAL (10MG/ML) FOR IV START INTRADERMA ONE (11:29)
[2019-05-27] MEDS ORDERED: MIDAZOLAM (PF) 2 MG/2 ML VIAL IV ONE (11:32)
[2019-05-27] MEDS ORDERED: PHENYLEPHRINE-0.9% NACL SYG 1 MG/10 ML SYRINGE ONE (13:16)
[2019-05-27] MEDS ORDERED: PROPOFOL 10 MG/ML 20 ML VIAL IV ONE (13:16)
[2019-05-27] MEDS ORDERED: LIDOCAINE 1% INJ 10MG/ML (20 ML MDV) ONE (13:16)
[2019-05-27] MEDS ORDERED: MIDAZOLAM 2 MG/2 ML VIAL ONE (13:16)
[2019-05-27] MEDS ORDERED: fentaNYL (PF) 50 MCG/ML 2 ML AMP ONE (13:16)
[2019-05-27] MEDS ORDERED: KETOROLAC 30 MG/ML 1 ML VIAL ONE (13:16)
[2019-05-27] MEDS ORDERED: SUCCINYLCHOLINE CHLORIDE 100 MG/5 ML SYR IV ONE (13:16)
[2019-05-27] MEDS ORDERED: ceFAZolin 10 GM VIAL IVPB ONE (13:36)
[2019-05-27] MEDS ORDERED: LACTATED RINGERS 1,000 ML IV ONE (14:05)
[2019-05-27] MEDS ORDERED: diphenhydrAMINE 50 MG/ML 1 ML VIAL IVP ONE (14:36)
[2019-05-27 14:41] VITALS: TEMP 97.8
[2019-05-27] MEDS ORDERED: PROMETHAZINE INJ 25 MG/ML 1 ML VIAL IVPB ONE (15:01)
[2019-05-27] MEDS ORDERED: HYDROcodone/APAP 5-325MG 1 EACH TAB PO ONE (15:39)
[2019-05-27 16:04] VITALS: BP 123/78; PULSE 96; RESP 91
--- NOTE | 2019-05-28 06:32 | OP ---
OPERATIVE REPORT DATE OF SURGERY: 05/27/2019 SURGEON: Wilfred Hart MD. PREOPERATIVE DIAGNOSIS: Seroma, right reconstructed breast. POSTOPERATIVE DIAGNOSIS: Seroma, right reconstructed breast. OPERATIVE PROCEDURES: 1. Exploration right reconstructed breast. 2. Revision right reconstructed breast. 3. Replacement of right breast tissue synthetic gem press operator for right breast reconstruction. 4. Drainage of right reconstructed breast seroma. OPERATIVE INDICATIONS: Patient is a 53-year-old female who has undergone mastectomy for breast cancer as a bilateral procedure with immediate reconstruction via tissue synthetic gem press operator technique. She completed tissue expansion uneventfully and returned to surgery for replacement of synthetic gem press operator with implants. The patient did well initially after the surgery and then developed a wound involving the right breast and also left breast. She was taken to surgery, but the right breast had a large area of exposed implant and the implant could not be salvaged. The cultures from that procedure were negative and at surgery, the synthetic gem press operator was placed on the right side with a drain. The patient's left-sided wound was excised and closed. She healed well in all areas. Drain was removed and she proceeded with her first expansion. She then returned with fluid accumulation and redness to the right breast. Oral antibiotics were started. Fluid was aspirated. It was clear and yellow. Cultured negative. The fluid was also removed from the synthetic gem press operator. The seroma recurred and it has been aspirated 2 separate times with a little change in volume. She is returning to surgery today for exploration of reconstructive breast, possible removal of the synthetic gem press operator and simple closure versus replacement of the synthetic gem press operator. She understands the breast will require revision to optimize the reconstruction and obtain closure. She has requested that I proceed with today's surgery. She is aware of potential risks and complications present. OPERATIVE PROCEDURE SUMMARY: The patient was seen in pre-surgical area, markings made, procedure reviewed. All questions answered. She was transferred to the operating room. She was placed in supine position. General endotracheal anesthesia was established. She was prepped and draped in usual fashion. The right breast mastectomy scar was outlined in an elliptical fashion, sharply excised with 10 blade scalpel, sending scar to pathology. The seroma fluid was present and it easily drained. It was clear yellow. The fluid was drained. The synthetic gem press operator removed and deep to the synthetic gem press operator cultures were obtained and sent to microbiology for Gram stain, aerobic, anaerobic culture and sensitivity. Irrigation was performed. We used pulsed irrigation unit several liters of fluid. The expansion cavity appeared normal with no granulation tissue, no exudates. Revision of the cavity was necessary to obtain sufficient size for placement of a new synthetic gem press operator and closure without tension. Dissection was performed with cauterization re-elevating the muscle flap and releasing scar tissue. Areas where the tissue was tighter were divided in a cruciate fashion all along the deep surface of the muscle, both anterior and lateral to obtain decreased tension. Hemostasis maintained with cautery. Additional irrigation was performed with pulsed irrigation unit. Excellent hemostasis was present. The new tissue synthetic gem press operator was opened on the field after changing surgeon's gloves. The synthetic gem press operator is a [employer] high-profile line measuring 375 mL, model number [id number], serial #[id number]. Device was only handled by the surgeon. It was irrigated with saline. All air extracted and mL of 0.9 normal saline instilled and it was inserted in reconstructive cavity under direct vision. Orientation was assured and then a 19 round Gallo channel drain inserted in the reconstructive cavity above the synthetic gem press operator, but deep to the muscle flap layer. Drain was brought through a separate stab incision right anterior lower chest wall and sutured in place with 2-0 Prolene. The muscle flap tissue was then closed over the synthetic gem press operator using interrupted inverted 4-0 Monocryl followed by closure of superficial dermis and epidermis with mildred. The drain was connected to close bulb suction and patent. Surgical machuca cleansed with saline, dries, postoperative bandage placed using Kerlix squares, ABD pad, secured with 3M Medipore tape. The patient was then awakened from her anesthetic, extubated, and transferred to recovery room in good condition with stable vital signs. The estimated blood loss was 50 mL. There were no complications. MMODL / IJN: [id number] /
== END 2019-05-27 16:20 | disposition home or self-care (01) ==
LOC: OR 11:08
PROVIDERS: ATTEND Plastic Surgery
DX: L76.34 Postprocedural seroma of skin and subcutaneous tissue following other procedure (principal); C50.911 Malignant neoplasm of unspecified site of right female breast; C50.912 Malignant neoplasm of unspecified site of left female breast; F32.9 Major depressive disorder, single episode, unspecified; G62.9 Polyneuropathy, unspecified; Z79.811 Long term (current) use of aromatase inhibitors; Z79.899 Other long term (current) drug therapy; Z90.710 Acquired absence of both cervix and uterus; Z90.13 Acquired absence of bilateral breasts and nipples
CPT/HCPCS: 88305; 87070; 87205; 87075; 87102; 10140; 19380; J2250 ×2; J1200; J1100; J2550; J0690; J2405; J2001; J3010; J1885; J2370; J0330; J2704

== ENCOUNTER 2019-07-15 06:23 | Day surgery (SDC) | payer BC ==
[2019-07-14 12:05] VITALS: BMI 22.1
[~2019-07-15 06:23] MED LIST changes: -LACTATED RINGERS 1,000 ML IV SCH; +LIDOCAINE 1% 20 ML VIAL (10MG/ML) FOR IV START INTRADERMA PRN; +Pre Op ABX Message 1 EACH MISC MISCELLANE ONE
[2019-07-15 06:46] VITALS: TEMP 97.3
[2019-07-15] MEDS: LACTATED RINGERS 1,000 ML IV SCH ×2 (06:51→07:42)
[2019-07-15] MEDS ORDERED: SUCCINYLCHOLINE CHLORIDE 100 MG/5 ML SYR IV ONE (07:38)
[2019-07-15] MEDS ORDERED: ePHEDrine SULFATE/0.9% NACL/PF 50 MG/5 ML SYRINGE IV ONE (07:38)
[2019-07-15] MEDS ORDERED: LIDOCAINE 1% INJ 10MG/ML (20 ML MDV) ONE (07:38)
[2019-07-15] MEDS ORDERED: fentaNYL (PF) 50 MCG/ML 2 ML AMP ONE (07:38)
[2019-07-15] MEDS ORDERED: PROPOFOL 10 MG/ML 20 ML VIAL IV ONE (07:38)
[2019-07-15] MEDS ORDERED: LACTATED RINGERS 1,000 ML IV ONE (09:05)
[2019-07-15] MEDS ORDERED: ONDANSETRON 4 MG/2 ML VIAL IVP ONE (09:05)
--- NOTE | 2019-07-15 09:50 | P.ANPRN ---
Procedure Note - Anesthesia - Nerve Block Performed Right Other (see comment) Single Time Out Performed: Yes (PECS 2 block) Date of Procedure: 07/15/19 Procedure Start Time: 06:58 Procedure Stop Time: 07:15 Location of Patient Procedure: PreOp Indication: Acute Post-Operative Pain, Requested by Surgeon Sedation Type: Sedate with meaningful contact maintained Preparation: Sterile Prep, Sterile Dressing Position: Supine Catheter: None Needle Types: Pajunk Needle Gauge: 20 Ultrasound used to visualize needle placement: Yes Ultrasound used to observe medication spread: Yes Injectate: 0.5% Ropivacaine (see comment for volume) (20 ml) Blood Aspirated: No Pain Paresthesia on Injection Noted: No Resistance on Injection: Normal Image Stored and Saved: Yes Events: Uneventful and Well Tolerated
[2019-07-15 09:58] VITALS: BP 132/78; PULSE 67; RESP 18
--- NOTE | 2019-07-15 10:30 | OP ---
OPERATIVE REPORT DATE OF SURGERY: July 15, 2019. SURGEON: Wilfred Hart MD PREOPERATIVE DIAGNOSIS: Right reconstructed breast cellulitis. POSTOPERATIVE DIAGNOSIS: 1. Right reconstructed breast cellulitis. 2. Right reconstructed breast seroma. PROCEDURES: 1. Exploration right reconstructed breast with removal of tissue certified credit counselor. 2. Drainage of seroma, culture, irrigation. OPERATIVE INDICATIONS: The patient is a 54-year-old female who has been treated for a right breast cancer with bilateral mastectomy. She chose immediate reconstruction, which was performed via tissue certified credit counselor technique. The patient completed expansion in normal fashion with return to surgery for second-stage reconstruction with removal of expanders, insertion of implants that went well. Three to four weeks after the procedure, the patient developed wounds involving both breasts and required immediate surgical exploration. The left reconstructed breast was salvaged with excision wound and re-closure. However, the right side, an implant could not be placed. A tissue certified credit counselor was reinserted with a drain in the patient's postoperative course was unremarkable. That surgery was performed in early May 2019. Yesterday, I was contacted by the patient. She developed erythema and swelling to the right reconstructed breast that was significant. Based on the patient's history and recurrent problems of the right breast, she was scheduled for today's exploration. She understands likely the certified credit counselor will be removed and will need a period of time that she heals before consideration for further breast reconstruction can be made. She does fully understand there are additional options for breast reconstruction surgery. She also understands possibility that the wound may be left open depending on the severity. She has requested I perform the surgery. OPERATIVE PROCEDURE SUMMARY: The patient was seen in the presurgical area, markings made, procedure reviewed. All questions answered. She was transported to the operating room where she was placed in supine position. Following induction of general endotracheal anesthesia, the patient was prepped and draped in usual fashion. The incision was diagrammed over the patient's transverse mastectomy incision site. Using a 10 blade scalpel, skin was divided in full-thickness fashion followed by use of cauterization divide subcutaneous tissue layer this tissue was noted as very edematous. Once the muscle fascia and muscle layers divided, the certified credit counselor was exposed. There was cloudy yellow fluid present. There was a copious amount. Immediate cultures were obtained and then the fluid was suctioned away. Approximately 300 mL of seroma fluid was evacuated. The certified credit counselor was then removed intact. There was minimal exudates present. Gentle curetting of the surface was performed to remove all exudates, followed by irrigation with several liters of fluid using pulsatile irrigation system. All tissue that remained appeared healthy. A 19 flat channel drain was inserted into the reconstructive site and brought out separate stab incision in the right anterior lateral chest wall and sutured in place with 2-0 Prolene. The muscle layer was then approximated in loose fashion using interrupted 4-0 Monocryl and then the skin closed with interrupted mildred. Surgical machuca cleansed with saline and dried. Postoperative bandage placed using 4 x 4, secured with 3M Medipore tape and a drain sponge followed by position of size 3 mammary support with additional Kerlix gauze for pressure effect on the surface. The drains connected to close bulb suction and patent. The patient tolerated the procedure well. The estimated blood loss was 25 mL. She was extubated in the operating room and transferred to recovery room in good condition with stable vital signs. There were no complications. MMODL / IJN: [id number] / MTDD
== END 2019-07-15 10:17 | disposition home or self-care (01) ==
LOC: OR 06:23
PROVIDERS: ATTEND Plastic Surgery
DX: M96.843 Postprocedural seroma of a musculoskeletal structure following other procedure (principal); C50.911 Malignant neoplasm of unspecified site of right female breast; F32.9 Major depressive disorder, single episode, unspecified; Z90.13 Acquired absence of bilateral breasts and nipples; Z98.890 Other specified postprocedural states; Z79.899 Other long term (current) drug therapy; Z90.710 Acquired absence of both cervix and uterus; Z83.3 Family history of diabetes mellitus; Z82.49 Family history of ischemic heart disease and other diseases of the circulatory system; Z80.41 Family history of malignant neoplasm of ovary
CPT/HCPCS: 87070; 87205; 87075; 11971; 19020; 64450; J2250; J1100; J0690; J2405; J2001; J3010; J0330; J2704

== ENCOUNTER → 2019-11-11 | Outpatient (CLI) | payer BC ==
--- NOTE | 2019-11-11 13:19 | XR ---
Left shoulder HISTORY: Left shoulder pain, history of breast carcinoma 2 views of the left shoulder Left lung apex as visualized is normal. There are overlying artifacts. No fracture or dislocation. Po ssible thoracic spinal curvature. Bone mineralization, joint spaces and alignment are maintained. IMPRESSION: No abnormality evident within the left shoulder.
== END | disposition home or self-care (01) ==
LOC: RADXRMAIN 12:11
PROVIDERS: ATTEND Internal Medicine Hematology & Oncology
DX: C50.111 Malignant neoplasm of central portion of right female breast (principal); R51 Headache; Z17.0 Estrogen receptor positive status [ER+]

== ENCOUNTER → 2019-11-24 | Outpatient (CLI) | payer BC ==
--- NOTE | 2019-11-24 15:52 | NM ---
EXAMINATION TYPE: NM bone scan whole body DATE OF EXAM: 11/24/2019 COMPARISON: NONE HISTORY: Breast cancer Delayed whole-body scanning was performed following the injection of 22.9 mCi Tc 99m MDP. Images acq uired 3 hours post injection. FINDINGS: Slight curvature the spine with no suspicious increased or reduced uptake. Increased uptake surrounding the calvarium is noted. Appendicular skeleton demonstrates no abnormal increased or redu sid uptake. Within the pelvis there is no abnormal uptake. IMPRESSION: 1. Nonspecific uptake involving the calvarium for which either CT of the head or x-ray recommended.
== END | disposition home or self-care (01) ==
LOC: RADNMMAIN 10:46
PROVIDERS: ATTEND Internal Medicine Hematology & Oncology
DX: Z03.89 Encounter for observation for other suspected diseases and conditions ruled out (principal); C50.111 Malignant neoplasm of central portion of right female breast; R93.7 Abnormal findings on diagnostic imaging of other parts of musculoskeletal system
CPT/HCPCS: 78306; A9503

== ENCOUNTER 2020-05-11 07:46 | Day surgery (SDC) | payer BC ==
[2020-05-10 08:34] VITALS: BMI 23.0
[~2020-05-11 07:46] MED LIST changes: -HYDROmorphone 0.5 MG/0.5 ML SYRINGE IVP PRN; +LACTATED RINGERS 1,000 ML IV SCH; +LIDOCAINE 1% (10MG/ML) FOR IV START INTRADERMA PRN; -LIDOCAINE 1% 20 ML VIAL (10MG/ML) FOR IV START INTRADERMA PRN; -MIDAZOLAM 2 MG/2 ML VIAL IV PRN; -ONDANSETRON 4 MG/2 ML VIAL IVP ONE
[2020-05-11] MEDS ORDERED: ONDANSETRON 4 MG/2 ML VIAL ONE (08:13)
[2020-05-11] MEDS: ONDANSETRON 4 MG/2 ML VIAL IVP ONE ×2 (08:27→12:55)
[2020-05-11] MEDS ORDERED: MIDAZOLAM 2 MG/2 ML VIAL IV ONE (09:18)
[2020-05-11] MEDS ORDERED: fentaNYL (PF) 50 MCG/ML 2 ML AMP ONE (09:26)
[2020-05-11] MEDS ORDERED: PROPOFOL 10 MG/ML 20 ML VIAL IV ONE (09:26)
[2020-05-11] MEDS ORDERED: NEOSTIGMINE 1 MG/ML 10 ML VIAL ONE (09:26)
[2020-05-11] MEDS ORDERED: PHENYLEPHRINE-0.9% NACL SYG 1 MG/10 ML SYRINGE ONE (09:26)
[2020-05-11] MEDS ORDERED: GLYCOPYRROLATE 0.2 MG/ML 2 ML VIAL ONE (09:26)
[2020-05-11] MEDS ORDERED: ROCURONIUM 10 MG/ML (5 ML VIAL) IV ONE (09:26)
[2020-05-11] MEDS ORDERED: SUCCINYLCHOLINE CHLORIDE 100 MG/5 ML SYR IV ONE (09:26)
[2020-05-11] MEDS ORDERED: LIDOCAINE 1% INJ 10MG/ML (20 ML MDV) ONE (09:26)
[2020-05-11] MEDS ORDERED: LACTATED RINGERS 1,000 ML IV ONE ×2 (10:51→13:11)
[2020-05-11 13:03] VITALS: TEMP 96.9
[2020-05-11] MEDS: HYDROmorphone 0.5 MG/0.5 ML SYRINGE IVP PRN ×2 (13:07→13:13)
[2020-05-11 13:16] VITALS: RESP 16
[2020-05-11] MEDS ORDERED: HYDROcodone/APAP 5-325MG 1 EACH TAB PO ONE (14:05)
[2020-05-11] MEDS ORDERED: HYDROcodone/APAP 5-325MG 1 EACH TAB ONE (14:06)
[2020-05-11 14:45] VITALS: BP 133/76; PULSE 75
--- NOTE | 2020-05-11 23:13 | OP ---
OPERATIVE REPORT DATE OF SURGERY: 05/11/2020. SURGEON: Dr. Wilfred Hart. PREOPERATIVE DIAGNOSES: 1. Acquired loss of right breast. 2. Personal history of breast cancer. POSTOPERATIVE DIAGNOSES: 1. Acquired loss of right breast. 2. Personal history of breast cancer. OPERATIVE PROCEDURES: 1. Right latissimus dorsi muscle flap for breast reconstruction. 2. Delayed insertion of tissue mixing engineer for right breast reconstruction. OPERATIVE INDICATIONS: The patient is a 54-year-old female who has undergone a mastectomy for treatment of breast cancer of the right breast. The patient had a bilateral procedure with immediate reconstruction with tissue expanders. She completed outpatient expansion and then had breast implants inserted. The patient had difficulty healing and required re- expansion on the right side, and then when the implant was replaced again failed. She was left with an open wound and required some time to heal. Once healed, the patient returned to my office and after re-evaluation has elected to proceed with further breast reconstruction. She is to undergo a latissimus dorsi muscle flap with placement of tissue mixing engineer. The patient understands potential risks and complications of the procedures, including but not limited to seroma, hematoma, wound healing problems, postoperative infection, among others. She also understands this is a staged surgery and will require further surgery to complete the process of reconstruction. The patient has requested I perform this surgery. OPERATIVE PROCEDURE SUMMARY: The patient was seen in the presurgical area and markings were made, procedure reviewed, all questions answered. She was transported back to the operating room, where she was placed in initially supine position. General endotracheal anesthesia was established. She was then repositioned lateral using a positioning esparza bag, axillary roll, foam and padding with the left side down. She was prepped and draped in the usual fashion. The elevation of the right latissimus dorsi muscle flap was now initiated. The site for incision had been drawn preoperatively. Using a 10-blade scalpel, incision was now made dividing skin in full-thickness fashion followed by cautery device. Skin and subcutaneous tissue was then elevated off the latissimus dorsi muscle fascia until identifying the tendinous portion inferiorly and approaching the patient's posterior midline area. The anterior border of the latissimus was also identified. The anterior border was now from loose areolar attachments and dissection was performed to elevate the anterior border of the latissimus with cautery. This was carried distally until reaching the tendinous portion, at which point the latissimus was transected and the latissimus was then elevated from distal to proximal with cauterization. Larger perforating vessels once identified were isolated proximal and distal, clamped, divided and cauterized. Excellent hemostasis was maintained during this process. As muscle was elevated from distal to proximal, care was taken to maintain orientation of the muscle. Once reaching the proximal extent, dissection stopped. Irrigation was performed. Hemostasis was excellent. A 19 round Gallo channel drain was inserted into the donor region and the donor site. The drain was brought through separate stab site in the right anterolateral chest wall and sutured in place with 2-0 Prolene. The muscle flap at the incision site was closed, approximating Ishaan's layer using inverted interrupted 2-0 Vicryl and then approximating the deep dermis using inverted interrupted 4-0 Monocryl, and then closing the superficial dermis epidermis with subcuticular 3-0 Prolene. The site was covered with tape and then a Tegaderm. The patient was repositioned supine. She was re-prepped and draped. The patient's right breast mastectomy scar was outlined in elliptical fashion and sharply excised. The scar tissue was sent to Pathology. Underlying muscle tissue was identified. There was no exact fascial layer due to scar tissue formation. Careful dissection was performed to separate skin and subcutaneous tissue from the underlying pectorals muscle tissue. Once this was completed, additional dissection was required to release scar adhesions to optimize the draping of the skin. With that completed, there was access to the deep portion of the pectorals major muscle, and this plane well as had been the prior expansion plane. Dissection continued to make sufficient size in this deep muscle plane for placement of a tissue mixing engineer. Once this was achieved, irrigation was performed. Hemostasis was excellent. The tunnel was completed from the anterior axillary side on the right by spreading the loose connective tissue and adipose tissue with hemostats. The latissimus dorsi muscle flap was identified. Dissection with cautery was required to make the tunnel slightly larger. Once of sufficient size, the muscle was carefully passed through, assuring orientation of the muscle by direct vision. The muscle appeared healthy. There was good viability with bright red bleeding from the distal cut edge of the muscle surface. There was no twisting or torsion on the pedicle that could be identified. The reconstructive cavity was sized. The tissue mixing engineer was opened on the field after changing gloves. The tissue mixing engineer Romayor Artoura high-profile model line TEXP 120RH, 375 mL volume. The serial number of the device was [id number]. The device was only handled by the surgeon. All air was extracted and 50 mL 0.9 normal saline instilled. The mixing engineer was inserted in the reconstructive cavity and the latissimus dorsi muscle placed over the mixing engineer, and then the latissimus dorsi muscle was inset to the remaining pectorals major muscle cuff as described previously using interrupted 3-0 Vicryl sutures. Complete coverage of the mixing engineer was obtained. Irrigation was performed. Hemostasis was excellent. A 19 round Gallo drain was now inserted into this reconstructive plane and brought out through a separate stab incision in the right anterior chest wall and sutured in place with 2-0 Prolene cut to appropriate length. It was placed over the latissimus muscle flap tissue but deep to the subcutaneous tissue layer. The mastectomy site incision was now closed, approximating deep dermis using inverted interrupted 4-0 deep dermal Monocryl sutures followed by closure of superficial dermis and epidermis with mildred. Both drains were connected to closed-bulb suction and patent. Surgical field was cleansed and the anterior surface covered with Kerlix squares secured with 3M Medipore tape. The Tegaderm was then removed from the back incision and covered with Kerlix squares and secured with 3M Medipore tape. The patient was then awakened from her anesthetic, extubated and transferred to the recovery room in good condition with stable vital signs. Estimated blood loss was 100 mL. The mixing engineer placed was a Romayor Artoura high- profile 375cc rated volume TEXP 120RH, serial #[id number], 50 mL of saline instilled. MMODL / IJN: [id number] /
== END 2020-05-11 15:13 | disposition home or self-care (01) ==
LOC: OR 07:46
PROVIDERS: ATTEND Plastic Surgery
DX: Z90.13 Acquired absence of bilateral breasts and nipples (principal); Z85.3 Personal history of malignant neoplasm of breast; F41.9 Anxiety disorder, unspecified; F32.9 Major depressive disorder, single episode, unspecified; Z83.3 Family history of diabetes mellitus; Z82.49 Family history of ischemic heart disease and other diseases of the circulatory system; Z80.41 Family history of malignant neoplasm of ovary; Z90.710 Acquired absence of both cervix and uterus; Z98.890 Other specified postprocedural states; Z97.2 Presence of dental prosthetic device (complete) (partial); Z79.811 Long term (current) use of aromatase inhibitors; Z79.899 Other long term (current) drug therapy
CPT/HCPCS: 88305; 19361; 19357; J2250; J1100; J2710; J0690; J2405; J2001; J3010; J2370; J0330; J2704; J1170

== ENCOUNTER → 2021-02-07 | Outpatient (CLI) | payer BC ==
--- NOTE | 2021-02-08 17:51 | BD ---
EXAMINATION TYPE: Axial Bone Density DATE OF EXAM: 02/07/2021 COMPARISON: 02/06/2019 CLINICAL HISTORY: Postmenopausal screening Height: 62.5 IN Weight: 128 LBS FRAX RISK QUESTIONS: Secondary Osteoporosis: 3. Menopause before 45: PARTIAL HYST AGE 32 Rheumatoid Arthritis: YES RISK FACTORS HISTORY OF: Family History of Osteoporosis: MOTHER AND GRANDMOTHER(M) Active: YES Diet low in dairy products/other sources of calcium: YES Postmenopausal woman: PARTIAL HYST AGE 32 Frequent falls: YES DUE TO NERVE SEIZURES MEDICATIONS: Osteoporosis Medications: YES Which medication: ALENDRONATE SODIUM How Lon + YEARS Additional Medications: NEURONTIN, ANASTRAZOLE, ALENDRONATE SODIUM Additional History: BREAST CANCER WITH CHEMO EXAM MEASUREMENTS: Bone mineral densitometry was performed using the [employer]. Bone mineral density as measured about the Lumbar spine is: ----- L1-L4(G/cm2): 0.884 T Score Values are as follows: ----- L2: -2.5 ----- L3: -2.5 ----- L4: -2.7 ----- L1-L4: -2.5 Bone mineral density has: Increased 2.3% since study of: 02/06/2019 Bone mineral density about the R hip (g/cm2): 0.881 Bone mineral density about the L hip (g/cm2): 0.802 T Score values are as follows: -----R Neck: -1.1 -----L Neck: -1.7 -----R Total: -0.8 -----L Total: -1.2 Bone mineral density has: Decreased -2.0% since study of: 02/06/2019 IMPRESSION: Osteoporosis (T Score less than -2.5). There is increased fracture risk and therapy is usually indicated based on age. Re-Screen 1-2 years. NOTE: T-SCORE=SD OF THE YOUNG ADULT MEAN.
== END | disposition home or self-care (01) ==
LOC: RADBDWWP 16:09
PROVIDERS: ATTEND Internal Medicine Hematology & Oncology
DX: C50.111 Malignant neoplasm of central portion of right female breast (principal); M81.0 Age-related osteoporosis without current pathological fracture; M85.89 Other specified disorders of bone density and structure, multiple sites; Z78.0 Asymptomatic menopausal state
CPT/HCPCS: 77080

== ENCOUNTER → 2022-09-11 | Outpatient (CLI) | payer BC ==
--- NOTE | 2022-09-12 10:36 | BD ---
EXAMINATION TYPE: Axial Bone Density DATE OF EXAM: 09/11/2022 CLINICAL HISTORY: 57 years year old Female. ICD-10 CODE: C50.511 MALIG NEOPLASM LOWER-OUTER QUAD LISBET AST Height: 5 FT 2IN Weight: 121 FRAX RISK QUESTIONS: Alcohol (3 or more units per day): NO Family History (Parent hip fracture): YES Glucocorticoids (More than 3mos): NO (Ex: prednisone, prednisolone, methylprednisolone, dexamethasone, and hydrocortisone). History of Fracture in Adulthood: NO Secondary Osteoporosis: 1. Type 1 Diabetes: NO 2. Hyperthyroidism: NO 3. Menopause before 45: NO 4. Malnutrition: NO 5. Chronic liver disease: NO Rheumatoid Arthritis: YES Current Tobacco Use: NO RISK FACTORS HISTORY OF: Surgery to Spine/Hip(right/left)/Wrist (right/left): NO Family History of Osteoporosis: YES Active: YES Diet low in dairy products/other sources of calcium: NO Postmenopausal woman: YES Take estrogen and/or progesterone medications: NO Lost more than 2 inches in height since high school: NO Frequent falls: YES Poor Health: FAIR Hyperparathyroidism: NO Adrenal Insufficiency: SPONGE KIDNEY MEDICATIONS: Additional Medications: CHEMO PILL , BONE DENSITY MEDS, NEURONTIN, HORMONE MODESTA Additional History: BREAST CANCER CHEMO KIMBERLY MAST/ BONE DENSITY MEDS SINCE 2019 EXAM MEASUREMENTS: Bone mineral densitometry was performed using the [employer]. Bone mineral density as measured about the Lumbar spine is: ----- L1-L4(G/cm2): 0.894 T Score Values are as follows: ----- L1: -2.0 ----- L2: -2.4 ----- L3: -2.6 ----- L4: -2.5 ----- L1-L4: -2.4 Bone mineral density has: INCREASED 0.9 % since study of: 2020 Bone mineral density about the R hip (g/cm2): 0.719 Bone mineral density about the L hip (g/cm2): 0.667 T Score values are as follows: -----R Neck: -1.5 -----L Neck: -1.9 -----R Total: -1.0 -----L Total: -1.0 Bone mineral density has: INCREASED 2.4 % since study of: 2020 FRAX%s: The graph provided illustrates a 4.7 % chance for a major osteoporotic fx and a 0.9 % chance for the hips probability for fx in 10 years time. IMPRESSION: Osteoporosis (T Score less than -2.5). There is increased fracture risk and therapy is usually indicated based on age. Re-Screen 1-2 years. NOTE: T-SCORE=SD OF THE YOUNG ADULT MEAN.
== END | disposition home or self-care (01) ==
LOC: RADBDWWP 16:09
PROVIDERS: ATTEND Internal Medicine Hematology & Oncology
DX: C50.111 Malignant neoplasm of central portion of right female breast (principal); M81.0 Age-related osteoporosis without current pathological fracture
CPT/HCPCS: 77080

== ENCOUNTER → 2023-02-21 | Outpatient (CLI) | payer BC ==
--- NOTE | 2023-02-21 12:46 | US ---
EXAMINATION TYPE: US transvaginal DATE OF EXAM: 02/21/2023 COMPARISON: NONE CLINICAL INDICATION: Female, 57 years old with history of R14.0 ABDOMINAL DISTENSION (GASEOUS) K59.00 Z80.41; Pt states bloating, constipation/ pt states personal h/o breast CA, pt states family h/o ova mario CA (mother and grandmother), pt poor historian with pelvic surgery, states possible hysterectomy with oophorectomy, however pt unsure if bilateral or unilateral ovaries removed TECHNIQUE: Transvaginal (TV). Transvaginal sonographic images of the pelvis were acquired. FINDINGS: 1. Uterus: Surgically absent 2. Endometrium: Surgically absent 3. Right Ovary: Unable to visualize, many peristalsing bowel loops visualized- pt unsure if surgical ly removed or not 4. Left Ovary: Unable to visualize, many peristalsing bowel loops visualized- pt unsure if surgicall y removed or not 5. Bilateral Adnexa: wnl 6. Posterior cul-de-sac: wnl Transmission Builder notes:No pelvic mass visualized at this time, many peristalsing bowel loops visualized IMPRESSION: Status post hysterectomy. Unable to visualize either ovary. Patient unsure if nephrectomies were perf ormed.
== END | disposition home or self-care (01) ==
LOC: RADUSWWP 07:36
PROVIDERS: ATTEND Family Medicine
DX: K59.00 Constipation, unspecified (principal); R14.0 Abdominal distension (gaseous); Z90.710 Acquired absence of both cervix and uterus; Z80.41 Family history of malignant neoplasm of ovary
CPT/HCPCS: 76830

== ENCOUNTER → 2023-03-09 | Outpatient (CLI) | payer BC ==
--- NOTE | 2023-03-09 15:27 | NM ---
EXAMINATION TYPE: NM bone scan whole body DATE OF EXAM: 03/09/2023 COMPARISON: 11/24/2019 CLINICAL INDICATION: Female, 57 years old with history of C50.111 breast ca; Delayed whole-body scanning was performed following the injection of 19.5 mCi Tc 99m MDP. Images acq uired 3 hours post injection. FINDINGS: Slight curvature the spine with no suspicious increased or reduced uptake. Increased Appendicular sk eleton demonstrates no abnormal increased or reduced uptake. Within the pelvis there is no abnormal u ptake. IMPRESSION: No diagnostic evidence of metastases.
== END | disposition home or self-care (01) ==
LOC: RADNMMAIN 10:11
PROVIDERS: ATTEND Internal Medicine Hematology & Oncology
DX: C50.111 Malignant neoplasm of central portion of right female breast (principal); R51.9 Headache, unspecified; Z17.0 Estrogen receptor positive status [ER+]
CPT/HCPCS: 78306; A9503

== ENCOUNTER 2023-04-06 12:49 | Day surgery (SDC) | payer BC ==
[2023-04-04 10:46] VITALS: BMI 21.6
[~2023-04-06 12:49] MED LIST changes: -DEXAMETHASONE SOD PHOSPHATE 10 MG/ML 1 ML VIAL IV ONE; -LIDOCAINE 1% (10MG/ML) FOR IV START INTRADERMA PRN; -Pre Op ABX Message 1 EACH MISC MISCELLANE ONE; -SCOPOLAMINE 1.5MG/72HR PATCH TRANSDERM ONE
[2023-04-06 13:14] VITALS: TEMP 98.4
[2023-04-06] MEDS ORDERED: MIDAZOLAM 2 MG/2 ML VIAL IVP ONE (13:26)
--- NOTE | 2023-04-06 14:16 | P.PCN ---
Date of Procedure: 04/06/23 Procedure(s) Performed: BRIEF HISTORY: Patient is a 57-year-old pleasant white female scheduled for an elective colonoscopy as a part of screening for colon cancer. PROCEDURE PERFORMED: Colonoscopy. PREOPERATIVE DIAGNOSIS: Screening for colon cancer. IV sedation per Anesthesia. PROCEDURE: After informed consent was obtained, the patient, was brought into the endoscopy unit. IV sedation was administered by Anesthesia under continuous monitoring. Digital rectal examination was normal. Initially the Olympus CF-160 flexible video colonoscope was then inserted in the rectum, gradually advanced into the cecum without any difficulty. Careful examination was performed as the scope was gradually being withdrawn. Ileocecal valve and the appendiceal orifice were visualized and appeared normal. Prep was excellent. Mucosa of the cecum, ascending colon, transverse colon, descending colon, sigmoid colon, and rectum appeared normal. Retroflexion was performed in the rectum and no lesions were seen. The patient tolerated the procedure well. IMPRESSION: Normal-appearing colon from rectum to cecum with no evidence of colorectal neoplasia . RECOMMENDATIONS: Findings of this examination were discussed with the patient as well as a family. She was advised to have a repeat screening colonoscopy in 5 years .
[2023-04-06 14:28] VITALS: RESP 16
[2023-04-06 14:38] VITALS: BP 153/88; PULSE 84
== END 2023-04-06 14:49 | disposition home or self-care (01) ==
LOC: ORWHC2ENDO 12:49
PROVIDERS: ATTEND Internal Medicine Gastroenterology
DX: Z12.11 Encounter for screening for malignant neoplasm of colon (principal); F41.8 Other specified anxiety disorders; F12.90 Cannabis use, unspecified, uncomplicated; Z79.899 Other long term (current) drug therapy; Z98.890 Other specified postprocedural states; Z90.710 Acquired absence of both cervix and uterus; Z85.43 Personal history of malignant neoplasm of ovary; Z85.3 Personal history of malignant neoplasm of breast
CPT/HCPCS: 45378; J2250

== ENCOUNTER → 2024-03-28 | Outpatient (CLI) | payer BC ==
[2024-03-28 10:05] LABS: African American GFR (CKD) >90 (>60 ml/min/1.73 sqM); Blood Urea Nitrogen 8 mg/dL (7-17); Non-African American GFR(CKD) >90 (>60 ml/min/1.73 sqM)
--- NOTE | 2024-04-02 08:53 | CT ---
EXAMINATION TYPE: CT abdomen pelvis w con DATE OF EXAM: 03/28/2024 COMPARISON: Bone scan 03/09/2003 HISTORY: f/u breast cancer CT DLP: 419.5 mGycm Automated exposure control for dose reduction was used. CONTRAST: CT scan of the abdomen pelvis is performed with IV Contrast, patient injected with 100 mL of Isovue 3 00. FINDINGS- LUNG BASES- No significant abnormality is appreciated. LIVER/GB- there are 2 punctate hypodensities along the periphery of right lobe of the liver on imag e 17, 18 and 25 measuring 1 to 2 mm and too small to characterize. PANCREAS- No gross abnormality is seen. SPLEEN- No gross abnormality is seen. ADRENALS- mild thickening of the left adrenal gland nonspecific but most typical of benign hyperplas ia. KIDNEYS/BLADDER- no hydronephrosis nephrolithiasis or renal mass. BOWEL- small hiatal hernia. No evidence of obstruction. No significant diverticular disease. LYMPH NODES- No greater than 1cm abdominal or pelvic lymph nodes are appreciated. OSSEOUS STRUCTURES- multilevel hypertrophic and degenerative changes. There is mild multilevel facet . Sclerotic density involving the right femoral head and left acetabulum is nonspecific most likely o n the basis of benign bone. No destructive osseous changes. Congenital spina bifida occulta lumbosacr al junction. OTHER- uterus not seen correlate for prior hysterectomy. Soft tissue nodules in the pelvic adnexa bi laterally likely related to residual ovarian tissue correlate with surgical history for confirmation. Small fat-containing periumbilical hernia. No free fluid or free air. Previous breast implant surgery. IMPRESSION- 1. No diagnostic evidence of metastatic disease. There are multiple tiny 1 to 2 mm hypodensities with in the right lobe of the liver which are too small to characterize. Statistically most likely related to benign cysts but should be followed with subsequent CT scan. 2. Sclerotic tiny punctate densities involving the vertebral column and right hip to small to charact erize favor benign bone island. Recommend continued surveillance.
== END | disposition home or self-care (01) ==
LOC: RADCTMAIN 09:16
PROVIDERS: ATTEND Internal Medicine Hematology & Oncology
DX: C50.111 Malignant neoplasm of central portion of right female breast (principal); R51.9 Headache, unspecified; Z17.0 Estrogen receptor positive status [ER+]
CPT/HCPCS: 82565; 84520; 74177; 36415; Q9967

== ENCOUNTER → 2024-07-31 | Outpatient (CLI) | payer OTHER ==
--- NOTE | 2024-07-31 17:44 | XR ---
EXAMINATION TYPE: XR cervical spine 5 views comp, XR thoracic spine 3 views complete, XR lumbar spine 3V, XR pelvis AP view, XR humerus 2 views RT DATE OF EXAM: 07/31/2024 COMPARISON: None HISTORY: 59-year-old female fall backwards after 3 boxes came crushing down on patient. Pain. S40.01 1A, S20.229A, S30.0XXA FINDINGS: Cervical spine: No predental space widening or prevertebral soft tissue swelling. Mild to moderate degenerative disc space narrowing and endplate spondylosis C5-C6. Overall alignment is maintained. Facet and uncoverteb ral joint arthropathy mid to lower cervical spine. Changes result in moderate to severe bony neural f oraminal narrowing on the left at C6-C7 and moderate at C5-C6 and C7-T1. Changes result in moderate b kimberly neuroforaminal narrowing C5-C6, C6/C7, and C7-T1 on the right. Normal odontoid view. Thoracic spine: Very gentle S-shaped curvature of thoracic spine. 12 rib-bearing thoracic vertebral bodies. All pedic les are visualized. Mild degenerative disc disease midthoracic spine. Vertebral body heights are pres erved and alignment is maintained. Lumbar spine: 5 lumbar type vertebral bodies. There is an accentuated lower lumbar lordosis. Mild to moderate degen erative disc disease L-1-L2 with endplate sclerosis and anterior spurring. Prominent hypertrophic fac et arthropathy lower lumbar spine. Vertebral body heights are preserved and alignment is maintained. Pelvis: SI joints appear symmetric and intact. Mild degenerative change at the pubic symphysis. Hips appear s ymmetric and intact with mild degenerative spurring. There is a sclerotic focus at both the superior right acetabulum and right femoral head probably bone islands. Additional sclerotic focus in L5 verte bral body. No acute fracture, subluxation, or dislocation. Right humerus: Acromial space is preserved. No acute fracture seen. No periostitis or osteolysis. IMPRESSION: 1. Cervical spine: Moderate spondylotic change mid to lower cervical spine. No prevertebral soft tiss ue swelling or malalignment. 2. Thoracic spine: Mild degenerative disc disease midthoracic spine. No vertebral compression collaps e or malalignment. 3. Lumbar spine: Accentuated lower lumbar lordosis with advanced hypertrophic facet arthropathy. Mild to moderate degenerative disc disease L1-L2. No vertebral compression collapse or malalignment. 4. Pelvis: A few sclerotic foci in right superior acetabulum, right femoral head, and left L5 vertebr al body. In the absence of any known primary neoplasm, findings likely represent bone islands. If sebastian picious symptoms, nuclear medicine whole body bone scan can be used to survey the entire skeleton and exclude the possibility of osseous metastases. Otherwise, no acute osseous abnormality seen. 5. Right humerus: No acute osseous abnormality seen. [facility], , 07/31/2024 5:42 PM
== END | disposition home or self-care (01) ==
LOC: RADXRMAIN 16:36
PROVIDERS: ATTEND Emergency Medicine
CPT/HCPCS: 72050; 72072; 72100; 72170